=== PATIENT | female | born 1960 | race Hispanic/Latino ===

== ENCOUNTER 2017-07-19 15:42 | Emergency (ER) | payer OTHER, MEDICARE ==
[~2017-07-19 15:42] MED LIST: ACET1TAB12 PO; CIPR-245 PO; METR500T PO
[2017-07-19 16:14] LABS: BASOPHILS % (AUTO) 0.6 % (0.0-5.0); EOSINOPHILS % (AUTO) 1.7 % (0.0-8.0); HEMATOCRIT 37.3 % (36-48); LYMPHOCYTES % (AUTO) 43.7 % (21.0-51.0); MEAN CORPUSCULAR HEMOGLOBIN 28.5 pg (27.0-33.0); MEAN CORPUSCULAR HGB CONC 33.4 g/dL (32.0-36.0); MEAN CORPUSCULAR VOLUME 85.4 fL (79-99); MONOCYTES % (AUTO) 6.2 % (3.0-13.0); NEUTROPHILS % (AUTO) 47.8 % (40.0-77.0); NUCLEATED RED BLOOD CELLS 0.1 % (0.0-0.19); PLATELET COUNT (AUTO) 252 K/uL (130-400); RED BLOOD CELL COUNT(AUTO) 4.37 MIL/uL (4.00-5.50); WHITE BLOOD COUNT (AUTO) 9.4 K/uL (4.8-10.8)
[2017-07-19 16:23] LABS: CREATININE 0.5 mg/dL (0.5-1.5); POTASSIUM 3.5 mmol/L (3.5-5.1)
[2017-07-19 16:27] LABS: ALBUMIN 3.2 g/dL (3.5-5.0); BILIRUBIN,TOTAL 0.2 mg/dL (0.2-1.0)
== END 2017-07-19 19:09 | disposition home or self-care (01) ==
LOC: EDH 15:42
DX: R07.9 Chest pain, unspecified (principal); E07.9 Disorder of thyroid, unspecified
CPT/HCPCS: 36415; 71045; 80053; 84484; 85025; 93005

== ENCOUNTER 2018-05-15 08:09 | Emergency (ER) | payer OTHER, MEDICARE ==
[2018-05-15 08:38] LABS: BASOPHILS % (AUTO) 0.8 % (0.0-5.0); EOSINOPHILS % (AUTO) 1.4 % (0.0-8.0); HEMATOCRIT 42.9 % (36-48); LYMPHOCYTES % (AUTO) 39.1 % (21.0-51.0); MEAN CORPUSCULAR HEMOGLOBIN 29.9 pg (27.0-33.0); MEAN CORPUSCULAR HGB CONC 33.3 g/dL (32.0-36.0); MEAN CORPUSCULAR VOLUME 89.9 fL (79-99); MONOCYTES % (AUTO) 5.7 % (3.0-13.0); PLATELET COUNT (AUTO) 239 K/uL (130-400); RED BLOOD CELL COUNT(AUTO) 4.77 MIL/uL (4.00-5.50); RED CELL DISTRIBUTION WIDTH 12.7 % (11.0-15.5); WHITE BLOOD COUNT (AUTO) 8.1 K/uL (4.8-10.8)
[2018-05-15 08:42] LABS: CREATININE 0.6 mg/dL (0.5-1.5); POTASSIUM 3.4 mmol/L (3.5-5.1)
[2018-05-15 08:49] LABS: INR 0.92 (0.85-1.15); PARTIAL THROMBOPLASTIN TIME 25.1 SEC (26.3-35.5); PROTHROMBIN TIME 9.7 SEC (9.6-11.6)
[2018-05-15 09:02] LABS: BILIRUBIN,TOTAL 0.4 mg/dL (0.2-1.0); TOTAL PROTEIN, SERUM 6.7 g/dL (6.0-8.3)
[2018-05-15 09:30] LABS: APPEARANCE,URINE Cloudy (CLEAR); BILIRUBIN,URINE Negative (NEGATIVE); COLOR,URINE Yellow (YELLOW); GLUCOSE, URINE (UA) Negative (NEGATIVE); KETONES,URINE Negative (NEGATIVE); LEUKOCYTE ESTERASE ,URINE Moderate (NEGATIVE); NITRATE,URINE Negative (NEGATIVE); OCCULT BLOOD,URINE Negative (NEGATIVE); PH,URINE 6.5 (5.0-8.0); PROTEIN,URINE Negative (NEGATIVE); UROBILINOGEN,URINE 0.2 mg/dL (0.2-1.0)
[2018-05-15 09:49] LABS: BACTERIA,URINE Few /HPF (None Seen); HYALINE CASTS, URINE 0-1 /LPF (0-1 /LPF); MUCUS,URINE Moderate LPF (None Seen); RBC,URINE 0-1 /HPF (0-1)
== END 2018-05-15 10:09 | disposition home or self-care (01) ==
LOC: EDH 08:09
DX: R07.89 Other chest pain (principal); E07.9 Disorder of thyroid, unspecified; Z90.49 Acquired absence of other specified parts of digestive tract
CPT/HCPCS: 36415; 71045; 80053; 81001; 82550; 83874; 84484; 85025; 85610; 85730; 93005

== ENCOUNTER 2019-03-14 11:00 | Observation (INO) | payer OTHER, MEDICARE ==
[~2019-03-14] VITALS: Ht 157.5 cm; Wt 96.9 kg
[2019-03-14 17:15] VITALS: BP 145/64
[2019-03-14 17:20] LABS: BASOPHILS % (AUTO) 0.7 % (0.0-5.0); EOSINOPHILS % (AUTO) 2.6 % (0.0-8.0); HEMATOCRIT 38.9 % (36-48); LYMPHOCYTES % (AUTO) 37.9 % (21.0-51.0); MEAN CORPUSCULAR HEMOGLOBIN 29.3 pg (27.0-33.0); MEAN CORPUSCULAR HGB CONC 32.6 g/dL (32.0-36.0); MEAN CORPUSCULAR VOLUME 89.6 fL (79-99); MONOCYTES % (AUTO) 6.2 % (3.0-13.0); NEUTROPHILS % (AUTO) 52.5 % (40.0-77.0); PLATELET COUNT (AUTO) 268 K/uL (130-400); RED BLOOD CELL COUNT(AUTO) 4.34 MIL/uL (4.00-5.50); RED CELL DISTRIBUTION WIDTH 12.3 % (11.0-15.5); WHITE BLOOD COUNT (AUTO) 8.5 K/uL (4.8-10.8)
[2019-03-14 17:32] LABS: INR 0.95 (0.85-1.15); PARTIAL THROMBOPLASTIN TIME 26.4 SEC (26.3-35.5)
[2019-03-14 17:36] LABS: CREATININE 0.7 mg/dL (0.5-1.5); POTASSIUM 3.7 mmol/L (3.5-5.1)
[2019-03-14] MEDS ORDERED: DONE5TAB33 PO (18:00)
[2019-03-14] MEDS ORDERED: SERT50TA12 PO (18:00)
[2019-03-22] VITALS (27 sets, daily range): BP systolic 115–149; BP diastolic 47–68
[2019-03-22] MEDS ORDERED: CEFAZOLIN SODIUM 1 GM VIAL ONE (09:43)
[2019-03-22] MEDS ORDERED: LACTATED RINGERS 1000ML 1,000 ML IV ONE (09:43)
[2019-03-22] MEDS ORDERED: GLYCOPYRROLATE 1 MG/5 ML SYRINGE ONE (11:13)
[2019-03-22] MEDS ORDERED: PROPOFOL 10 MG/ML 20ML VIAL IV ONE (11:13)
[2019-03-22] MEDS ORDERED: DEXAMETHASONE SOD PHOSPHATE 10MG/ML 1ML VIAL ONE (11:13)
[2019-03-22] MEDS ORDERED: SUCCINYLCHOLINE 200MG/10ML SYR ONE (11:13)
[2019-03-22] MEDS ORDERED: ONDANSETRON HCL 4 MG/2 ML VIAL ONE (11:13)
[2019-03-22] MEDS ORDERED: LIDOCAINE PF 2% 5ML ABBOJECT ONE ×2 (11:13→11:14)
[2019-03-22] MEDS ORDERED: ROCURONIUM 10MG/1ML SYR 10 MG/ML ML ONE (11:14)
[2019-03-22] MEDS ORDERED: MIDAZOLAM HCL 1 MG/ML 2ML VIAL ONE (11:14)
[2019-03-22] MEDS ORDERED: NEOSTIGMINE 5MG/5ML SYR IV ONE (11:14)
[2019-03-22] MEDS ORDERED: FENTANYL CITRATE PF 50 MCG/1 ML 2ML VIAL ONE ×2 (11:14→13:15)
[2019-03-22] MEDS ORDERED: ROPIVACAINE 0.5% 5MG/ML 30ML IJ ONE (11:16)
[2019-03-22] MEDS ORDERED: TRANEXAMIC ACID 1000MG/10ML ONE ×2 (11:49→13:56)
[2019-03-22] MEDS: SODIUM CHLORIDE 0.9% 1000ML 1,000 ML IV SCH ×2 (13:33→23:18)
[2019-03-22] MEDS ORDERED: TRAMADOL HCL 50 MG TABLET PO PRN (13:45)
[2019-03-22] MEDS ORDERED: MORPHINE SULFATE 4 MG/1ML SYG IVP PRN (13:45)
[2019-03-22] MEDS ORDERED: OXYCODONE HCL 5 MG TAB PO PRN (13:45)
[2019-03-22] MEDS ORDERED: ONDANSETRON HCL 4 MG/2 ML VIAL IVP PRN (13:45)
[2019-03-22] MEDS: ACETAMINOPHEN EXTRA STRENGTH 500 MG TABLET PO SCH ×2 (13:45→20:59)
[2019-03-22] MEDS ORDERED: DiphenhydrAMINE HCL 50 MG/ML VIAL IVP PRN (13:45)
[2019-03-22] MEDS ORDERED: MEPERIDINE-PF 25 MG/ML SYG ONE (13:47)
--- NOTE | 2019-03-22 15:10 | NUR ---
REPORT RECEIVED LEFT TKA , DRESSING DRY AND INTACT MONSE DRESSING FLASH GREEN , PATIENT AND DAUGHTER EDUCATED ON DRESSING AND TO REPORT IF GREEN LIGHT NOT FLASHING . PATIENT EASILY AROUSED BUT DRAFTING BACK TO SLEEP. DENIES PAIN AT THIS TIME WILL CONTINUE TO MONITOR
[2019-03-22] MEDS: OXYCODONE HCL 5 MG TAB PO PRN ×2 (16:26→21:26)
[2019-03-22] MEDS: CEFAZOLIN SODIUM 1 GM VIAL IVP SCH (18:47)
[2019-03-22] MEDS: KETOROLAC TROMETHAMINE 15MG/ML IV PRN (18:54)
--- NOTE | 2019-03-22 19:55 | NUR ---
Nursing Note Pt sat to bedside dangling on bed by FEMI Lezama
[2019-03-22] MEDS: FAMOTIDINE 20MG TAB 20 MG TAB PO SCH (20:58)
[2019-03-22] MEDS: CELECOXIB 200 MG CAP PO SCH (20:58)
[2019-03-22] MEDS: ASPIRIN 81 MG EC TAB PO SCH (20:58)
[2019-03-22] MEDS ORDERED: DONEPEZIL HCL 5 MG TAB PO SCH (21:00)
[2019-03-23] MEDS: KETOROLAC TROMETHAMINE 15MG/ML IV PRN (00:35)
[2019-03-23] MEDS: CEFAZOLIN SODIUM 1 GM VIAL IVP SCH (02:45)
--- NOTE | 2019-03-23 02:49 | NUR ---
Nursing Note- Downtime Medications charted on paper charting
[2019-03-23 05:02] VITALS: BP 124/59
[2019-03-23] MEDS: ACETAMINOPHEN EXTRA STRENGTH 500 MG TABLET PO SCH ×3 (05:58→21:35)
[2019-03-23 06:37] LABS: MEAN CORPUSCULAR HEMOGLOBIN 29.1 pg (27.0-33.0); MEAN CORPUSCULAR HGB CONC 32.5 g/dL (32.0-36.0); MEAN CORPUSCULAR VOLUME 89.6 fL (79-99); PLATELET COUNT (AUTO) 203 K/uL (130-400); RED BLOOD CELL COUNT(AUTO) 3.57 MIL/uL (4.00-5.50); RED CELL DISTRIBUTION WIDTH 12.3 % (11.0-15.5)
[2019-03-23 06:49] LABS: CREATININE 0.7 mg/dL (0.5-1.5); POTASSIUM 3.4 mmol/L (3.5-5.1)
[2019-03-23 08:00] VITALS: BP 107/54
[2019-03-23] MEDS: FAMOTIDINE 20MG TAB 20 MG TAB PO SCH ×2 (08:51→20:05)
[2019-03-23] MEDS: SERTRALINE HCL 50 MG TABLET PO SCH (08:51)
[2019-03-23] MEDS: ASPIRIN 81 MG EC TAB PO SCH ×2 (08:51→20:05)
[2019-03-23] MEDS: CELECOXIB 200 MG CAP PO SCH ×2 (08:51→20:05)
[2019-03-23] MEDS: OXYCODONE HCL 5 MG TAB PO PRN ×3 (08:52→18:14)
[2019-03-23] MEDS: POLYETHYLENE GLYCOL 3350 17 GM POWD.PACK PO SCH (08:52)
[2019-03-23 12:00] VITALS: BP 113/57
[2019-03-23] MEDS ORDERED: MAGNESIUM 2GM PREMIX 50ML 50 ML IV PRN (12:45)
[2019-03-23] MEDS ORDERED: LIDOCAINE HCL-MPF 1% 2ML VIAL IV PRN ×2 (12:45→16:00)
[2019-03-23] MEDS ORDERED: POTASSIUM CHLORIDE 10MEQ/100ML 100 ML IV PRN (12:45)
--- NOTE | 2019-03-23 14:06 | NUR ---
DC PLAN MEET WITH PATIENT IN ROOM. PER PATIENT, IS INDEPENDENT WITH ADLS, LIVES WITH SPOUSE, DENIES PROVIDER OR COMMUNITY RESOURCES IN USE, HAS CANE AND WALKER AND FEELS SAFE TO RETURN HOME. PER PATIENT AND , ARRANGEMENTS MADE WITH DR. LANDAVERDE OFFICE FOR OUTPATIENT PHYSICAL THERAPY. PER DR LANDAVERDE OFFICE, EQUIPMENT AND OUTPATIENT PHYSICAL THERAPY ARRANGED PRIOR TO HOSPITALIZATION. Addendum: 03/23/19 at 1408 by LUISA SÁNCHEZ RN CM Amended: Links added.
[2019-03-23 16:00] VITALS: BP 111/53
[2019-03-23] MEDS ORDERED: POTASSIUM CHLORIDE 20 MEQ ERTAB PO PRN (16:00)
[2019-03-23] MEDS ORDERED: POTASSIUM CHLORIDE 20MEQ/100ML 100 ML IV PRN (16:00)
[2019-03-23] MEDS: POTASSIUM CHLORIDE 10% ELIXIR 20 MEQ/15 ML UDCUP PO PRN ×2 (18:15→20:06)
[2019-03-23 20:00] VITALS: BP 114/62
[2019-03-23] MEDS ORDERED: DONEPEZIL HCL 5 MG TAB PO SCH (21:00)
[2019-03-24] VITALS: BP 110/52
[2019-03-24 04:00] VITALS: BP 120/69
[2019-03-24] MEDS: ACETAMINOPHEN EXTRA STRENGTH 500 MG TABLET PO SCH ×2 (06:03→15:11)
[2019-03-24] MEDS: OXYCODONE HCL 5 MG TAB PO PRN (07:39)
[2019-03-24 08:00] VITALS: BP 127/56
[2019-03-24 09:06] LABS: CREATININE 0.7 mg/dL (0.5-1.5); POTASSIUM 3.9 mmol/L (3.5-5.1)
[2019-03-24] MEDS: CELECOXIB 200 MG CAP PO SCH (09:56)
[2019-03-24] MEDS: SERTRALINE HCL 50 MG TABLET PO SCH (09:56)
[2019-03-24] MEDS: ASPIRIN 81 MG EC TAB PO SCH (09:56)
[2019-03-24] MEDS: FAMOTIDINE 20MG TAB 20 MG TAB PO SCH (09:56)
[2019-03-24] MEDS: POLYETHYLENE GLYCOL 3350 17 GM POWD.PACK PO SCH (09:57)
[2019-03-24 12:00] VITALS: BP 108/51
[2019-03-24 16:00] VITALS: BP 112/53
--- NOTE | 2019-03-24 18:51 | NUR ---
dr Lewis here and has discharaged the patient home; i have changed the liz dressing to left knee, the inc. line is well approx. with sutures and steri strips in place, mod amount of generalized edema no redness or drainage, new liz dressing applied and i have instructed pt to remove it on 03/29/19 and do daily dressing changes with gauze if drainage still noted otherwise to leave open to air; i have also instructed patient on signs and symptoms of infecetion to watch for and report to md; i have also given instuctions on after care for a knee replacement including activity, walker use, aspirin therapy; pt states understanding of all instructions.
[2019-03-25] MEDS ORDERED: BISACODYL 10 MG SUPP.RECT RC PRN (13:45)
== END 2019-03-24 19:13 | disposition home or self-care (01) ==
LOC: DAHIP 03-22 08:51 → EDSTATUS 03-22 11:00 → 4DH 03-22 14:59
PROVIDERS: ADMIT Orthopaedic Surgery; ATTEND Orthopaedic Surgery
DX: M17.12 Unilateral primary osteoarthritis, left knee (principal); E83.42 Hypomagnesemia; E87.6 Hypokalemia; Z79.899 Other long term (current) drug therapy
CPT/HCPCS: 27447; 36415 ×4; 80048 ×3; 83735 ×2; 85025; 85027; 85610; 85730; 86850; 86900; 86901; 88304; 88311; 96374; 96375; 96376; 97039; 97116 ×4; 97161; 97530 ×2; A4215; A4221; A4222; A4223; A4450; A4649 ×6; A4663; A4930 ×3; A5120; A6260; C1776; G0378 ×55; G8978; G8979; G8980; G8981; G8982; G8983; J0330; J0690 ×3; J1100; J1885 ×2; J2001 ×2; J2175; J2250; J2405; J2704; J2710; J2795; J3010 ×2; J3490 ×3; J7030; J7120 ×2